=== PATIENT | female | born 1970 | race Hispanic/Latino ===

== ENCOUNTER 2022-08-08 20:32 | Inpatient (IN) | payer OTHER ==
[~2022-08-08] VITALS: Ht 152.4 cm; Wt 88.1 kg
[2022-08-08] MEDS ORDERED: ACETAMINOPHEN 500 MG TABLET PO ONE (21:00)
[2022-08-08] MEDS ORDERED: TETRACAINE HCL 0.5% 4 ML OPHTH SOLN OP SCH (21:00)
[2022-08-08] MEDS ORDERED: FLUORESCEIN SODIUM 1 STRIP STRIP OP SCH (21:00)
[2022-08-08 21:17] LABS: BASOPHILS % (AUTO) 0.4 % (0.0-5.0); EOSINOPHILS % (AUTO) 0.4 % (0.0-8.0); HEMATOCRIT 45.8 % (36-48); LYMPHOCYTES % (AUTO) 20.7 % (21.0-51.0); MEAN CORPUSCULAR HEMOGLOBIN 28.2 pg (27.0-33.0); MEAN CORPUSCULAR HGB CONC 33.6 g/dL (32.0-36.0); MEAN CORPUSCULAR VOLUME 83.9 fL (79-99); MONOCYTES % (AUTO) 4.3 % (3.0-13.0); NEUTROPHILS % (AUTO) 73.8 % (40.0-77.0); PLATELET COUNT (AUTO) 270 K/uL (130-400); RED BLOOD CELL COUNT(AUTO) 5.46 MIL/uL (4.00-5.50); RED CELL DISTRIBUTION WIDTH 13.1 % (11.0-15.5); WHITE BLOOD COUNT (AUTO) 12.9 K/uL (4.8-10.8)
[2022-08-08 21:24] LABS: CREATININE 0.7 mg/dL (0.5-1.5); POTASSIUM 3.4 mmol/L (3.5-5.1)
[2022-08-08 21:29] LABS: TOTAL PROTEIN, SERUM 8.8 g/dL (6.0-8.3)
[2022-08-08] MEDS ORDERED: GENTAMICIN OP SCH (22:00)
[2022-08-08] MEDS ORDERED: VANCOMYCIN 500MG VIAL PO SCH (22:30)
[2022-08-08] MEDS ORDERED: ZOSYN 3.375GM +NS 50ML IVPB ONE (22:30)
[2022-08-08 22:55] LABS: CRP QUANTITATIVE 7.5 mg/L (0.00-9.0); MAGNESIUM 1.9 mg/dL (1.80-2.40)
[2022-08-08] MEDS ORDERED: NITROGLYCERIN 0.4 MG SL TAB SL PRN (23:00)
[2022-08-08] MEDS ORDERED: LABETALOL 20MG SYG IV ONE (23:00)
[2022-08-08] MEDS ORDERED: POTASSIUM CHLORIDE 10% ELIXIR 20 MEQ/15 ML UDCUP PO PRN (23:00)
[2022-08-08] MEDS ORDERED: MAGNESIUM 2GM PREMIX 50ML 50 ML IV PRN (23:00)
[2022-08-08] MEDS ORDERED: ACETAMINOPHEN 325 MG TAB PO PRN ×2 (23:00)
[2022-08-08] MEDS ORDERED: 0.9%NACL 1000ML 1,000 ML IV SCH (23:00)
[2022-08-08] MEDS ORDERED: LIDOCAINE HCL-MPF 1% 2ML VIAL IV PRN (23:00)
[2022-08-08] MEDS ORDERED: ONDANSETRON 4MG INJ IV PRN (23:00)
[2022-08-08] MEDS ORDERED: POTASSIUM CHLORIDE 20MEQ/100ML 100 ML IV PRN (23:00)
[2022-08-08] MEDS ORDERED: HYDROCODONE/ACETAMINOPHEN 5/325 MG TAB PO PRN ×2 (23:00)
[2022-08-08] MEDS ORDERED: KCL 20 MEQ ERTAB PO ONE (23:00)
[2022-08-08] MEDS: ZOSYN 3.375GM +NS 50ML IVPB SCH (23:29)
[2022-08-08 23:36] LABS: HEMOGLOBIN A1C 12.8 % (4.0-6.0)
[2022-08-08] MEDS: INSULIN HUMULIN R 100 UNIT/ML 3ML SQ SCH (23:51)
[2022-08-09] VITALS (7 sets, daily range): BP systolic 142–177; BP diastolic 74–90
[2022-08-09] MEDS ORDERED: GLUCAGON 1MG KIT 1 MG ML IM PRN
[2022-08-09] MEDS ORDERED: DEXTROSE 50%-WATER 50 ML DISP.SYRIN IV PRN
[2022-08-09] MEDS: VANCOMYCIN 500MG VIAL PO SCH ×4 (00:18→06:20)
[2022-08-09] MEDS: GENTAMICIN SULFATE 0.3% 5ML DROPS OP SCH ×4 (00:18→06:20)
[2022-08-09] MEDS ORDERED: CEFTRIAXONE 1G VIAL IVP ONE (00:30)
[2022-08-09] MEDS ORDERED: HYDROCODONE/ACETAMINOPHEN 5/325 MG TAB PO PRN (01:00)
[2022-08-09] MEDS ORDERED: INSULIN HUMULIN R 100 UNIT/ML 3ML SQ ONE (02:30)
[2022-08-09] MEDS ORDERED: LABETALOL 20MG SYG IV ONE (02:30)
[2022-08-09] MEDS ORDERED: LABETALOL 20MG VIAL IV ONE (02:33)
[2022-08-09] MEDS ORDERED: IBUPROFEN 200 MG TAB PO PRN (04:30)
[2022-08-09] MEDS ORDERED: HYDRALAZINE 20MG/ML VIAL IV PRN (05:30)
[2022-08-09] MEDS: HYDROCODONE/ACETAMINOPHEN 5/325 MG TAB PO PRN ×2 (05:43→15:25)
[2022-08-09 06:37] LABS: BASOPHILS % (AUTO) 0.4 % (0.0-5.0); EOSINOPHILS % (AUTO) 0.8 % (0.0-8.0); HEMATOCRIT 41.2 % (36-48); LYMPHOCYTES % (AUTO) 27.2 % (21.0-51.0); MEAN CORPUSCULAR HEMOGLOBIN 28.2 pg (27.0-33.0); MEAN CORPUSCULAR HGB CONC 32.8 g/dL (32.0-36.0); NEUTROPHILS % (AUTO) 65.1 % (40.0-77.0); PLATELET COUNT (AUTO) 248 K/uL (130-400); RED BLOOD CELL COUNT(AUTO) 4.79 MIL/uL (4.00-5.50); RED CELL DISTRIBUTION WIDTH 13.1 % (11.0-15.5); WHITE BLOOD COUNT (AUTO) 9.7 K/uL (4.8-10.8)
[2022-08-09 06:45] LABS: INR 0.96 (0.85-1.15); PROTHROMBIN TIME 10.5 SEC (9.6-11.6)
[2022-08-09 06:47] LABS: PARTIAL THROMBOPLASTIN TIME 25.1 SEC (26.3-35.5)
[2022-08-09 07:09] LABS: ALBUMIN 3.3 g/dL (3.5-5.0); CREATININE 0.6 mg/dL (0.5-1.5); MAGNESIUM 2.1 mg/dL (1.80-2.40); POTASSIUM 3.7 mmol/L (3.5-5.1); TOTAL PROTEIN, SERUM 7.3 g/dL (6.0-8.3)
[2022-08-09] MEDS: KCL 20 MEQ ERTAB PO PRN ×2 (07:34→12:12)
[2022-08-09] MEDS: INSULIN HUMULIN R 100 UNIT/ML 3ML SQ SCH ×4 (07:35→20:58)
[2022-08-09] MEDS: ZOSYN 3.375GM +NS 50ML IVPB SCH ×2 (08:33→16:28)
[2022-08-09] MEDS: FAMOTIDINE 20MG TAB PO SCH ×2 (08:33→20:47)
[2022-08-09] MEDS ORDERED: LISINOPRIL 10 MG TABLET PO SCH (09:00)
[2022-08-09] MEDS ORDERED: ENOXAPARIN SODIUM 40 MG/0.4 ML SYRINGE SQ SCH (09:00)
[2022-08-09] MEDS ORDERED: PHARMACY COMMUNICATION MISC SCH (10:30)
[2022-08-09] MEDS: VANCOMYCIN 50 MG/ML OP SCH ×26 (11:00→23:56)
[2022-08-09] MEDS: GENTAMICIN OD SCH ×13 (11:00→23:56)
[2022-08-09] MEDS ORDERED: LISI10TA24 PO (18:17)
[2022-08-09] MEDS: LISINOPRIL 10 MG TABLET PO SCH (20:47)
[2022-08-10] VITALS: BP 168/77
[2022-08-10] MEDS: ZOSYN 3.375GM +NS 50ML IVPB SCH ×2 (00:57→08:18)
[2022-08-10] MEDS: GENTAMICIN OD SCH ×16 (00:57→15:59)
[2022-08-10] MEDS: VANCOMYCIN 50 MG/ML OP SCH ×32 (00:58→15:58)
[2022-08-10 04:00] VITALS: BP 167/70
[2022-08-10] MEDS: HYDROCODONE/ACETAMINOPHEN 5/325 MG TAB PO PRN (05:43)
[2022-08-10 06:26] LABS: BASOPHILS % (AUTO) 0.4 % (0.0-5.0); EOSINOPHILS % (AUTO) 0.9 % (0.0-8.0); HEMATOCRIT 42.7 % (36-48); LYMPHOCYTES % (AUTO) 25.6 % (21.0-51.0); MEAN CORPUSCULAR HGB CONC 32.6 g/dL (32.0-36.0); MEAN CORPUSCULAR VOLUME 86.1 fL (79-99); MONOCYTES % (AUTO) 5.4 % (3.0-13.0); NEUTROPHILS % (AUTO) 67.4 % (40.0-77.0); PLATELET COUNT (AUTO) 265 K/uL (130-400); RED BLOOD CELL COUNT(AUTO) 4.96 MIL/uL (4.00-5.50); RED CELL DISTRIBUTION WIDTH 13.2 % (11.0-15.5)
[2022-08-10] MEDS: INSULIN HUMULIN R 100 UNIT/ML 3ML SQ SCH ×3 (06:35→11:50)
[2022-08-10 06:43] LABS: CREATININE 0.6 mg/dL (0.5-1.5); POTASSIUM 3.9 mmol/L (3.5-5.1)
[2022-08-10 07:40] VITALS: BP 160/90
[2022-08-10] MEDS ORDERED: INSULIN GLARGINE 100 UNITS/ML 10 ML VIAL SQ SCH (08:00)
[2022-08-10] MEDS: LISINOPRIL 10 MG TABLET PO SCH (08:19)
[2022-08-10] MEDS: FAMOTIDINE 20MG TAB PO SCH (08:19)
[2022-08-10] MEDS ORDERED: INSULIN HUMULIN R 100 UNIT/ML 3ML SQ SCH (11:30)
[2022-08-10 11:40] VITALS: BP 163/72
[2022-08-10] MEDS ORDERED: LISI20TA24 PO (13:19)
[2022-08-10] MEDS ORDERED: METF-444 PO ×2 (13:19→13:21)
[2022-08-10] MEDS ORDERED: AMLODIPINE 5 MG TAB PO ONE (14:00)
[2022-08-10] MEDS ORDERED: AMLO-257 PO (15:09)
== END 2022-08-10 16:30 | disposition home or self-care (01) | DRG 122 ==
LOC: EDH 20:32 → EDHIP 20:33 → 3BH 08-09 01:44
PROVIDERS: ADMIT Internal Medicine; ATTEND Internal Medicine
DX: H16.001 Unspecified corneal ulcer, right eye (principal); E11.65 Type 2 diabetes mellitus with hyperglycemia; E66.9 Obesity, unspecified; E87.6 Hypokalemia; Z20.822 Contact with and (suspected) exposure to COVID-19; I10 Essential (primary) hypertension; I16.0 Hypertensive urgency; Z83.3 Family history of diabetes mellitus; Z90.710 Acquired absence of both cervix and uterus; Z91.199 Patient's noncompliance with other medical treatment and regimen due to unspecified reason; Z68.37 Body mass index [BMI] 37.0-37.9, adult
CPT/HCPCS: 36415; 70450; 80048; 80053; 80202; 82948; 83036; 83605; 83735; 84145; 85025; 85610; 85651; 85730; 86140; 87040; 87070; 87076; 87635; C9803; G0378; J0360; J0696; J1815; J2543; J3370; J3475; J3490